=== PATIENT | male | born 1985 | race Caucasian/White ===

== ENCOUNTER → 2019-09-07 11:16 | Outpatient (BNVA) | payer SELFPAY | PROVIDERS: Family Provider Internal Medicine; PCP Registered Nurse; Visit Provider Nurse Practitioner Family | DX: R63.5 Abnormal weight gain (principal); E05.90 Thyrotoxicosis, unspecified without thyrotoxic crisis or storm | CPT/HCPCS: 81000; 84443 ==

== ENCOUNTER → 2019-12-13 08:22 | Outpatient (BNVA) | payer OTHER, SELFPAY | PROVIDERS: Family Provider Internal Medicine; PCP Nurse Practitioner Family; Referring Provider Nurse Practitioner Family; Visit Provider Urology | DX: R32 Unspecified urinary incontinence (principal) | CPT/HCPCS: 81003 ==

== ENCOUNTER → 2020-03-20 11:00 | Outpatient (BNVA) | payer OTHER, SELFPAY | PROVIDERS: Family Provider Internal Medicine; PCP Nurse Practitioner Family; Visit Provider Urology | DX: N48.0 Leukoplakia of penis (principal) | CPT/HCPCS: 81003 ==

== ENCOUNTER → 2020-12-03 12:14 | Outpatient (BNVA) | payer OTHER, SELFPAY | PROVIDERS: Family Provider Internal Medicine; PCP Nurse Practitioner Family; Visit Provider Nurse Practitioner Family | DX: R19.7 Diarrhea, unspecified (principal) | CPT/HCPCS: 87506 ==

== ENCOUNTER 2021-04-07 09:31 | Outpatient (CLI) | payer OTHER, SELFPAY ==
[2021-04-07 10:27] LABS: Alanine Aminotransferase 51 U/L (0-41); Albumin Level 4.1 g/dL (3.5-5.2); Alkaline Phosphatase 79 IU/L (40-130); Aspartate Amino Transferase 46 U/L (0-40); Blood Urea Nitrogen 16 mg/dL (6-20); Calcium 9.5 mg/dL (8.5-10.5); Carbon Dioxide 22 mmol/L (22-29); Chloride 106 mmol/L (98-107); Chol HDL Ratio 4.46 mg/dL (1.0-5.00); Cholesterol 174 mg/dL (0-200); Glomerular Filtration Rate 128.3 mL/min (90-130); Glucose 119 mg/dL (65-115); HDL Cholesterol 39 mg/dL (60-100); LDL Cholesterol Calculated 103 mg/dL (50-129); LDL HDL Ratio 2.64 RATIO (0.00-3.22); Osmolality Calculated 292 mOsm/kg (285-295); Sodium 140 mmol/L (136-145); Thyroid Stimulating Hormone 2.67 uIU/mL (0.27-4.20); Total Bilirubin 0.4 mg/dL (0.15-1.2); Total Protein 8.1 g/dL (6.6-8.7); Triglycerides 158 mg/dL (0-150)
[2021-04-07 10:28] LABS: Anion Gap 16.4 (5-19); Potassium 4.4 mmol/L (3.5-5.1)
== END 2021-04-07 09:32 | disposition home or self-care (01) ==
PROVIDERS: PCP Nurse Practitioner Family; Visit Provider Nurse Practitioner Family
DX: I10 Essential (primary) hypertension (principal); E78.5 Hyperlipidemia, unspecified; E66.9 Obesity, unspecified
CPT/HCPCS: 36415; 80053; 80061; 84443

== ENCOUNTER → 2021-04-29 10:57 | Outpatient (BNVA) | payer OTHER, SELFPAY | PROVIDERS: PCP Nurse Practitioner Family; Visit Provider Nurse Practitioner | DX: R05.9 Cough, unspecified (principal) | CPT/HCPCS: 87400 ==

== ENCOUNTER 2021-07-21 18:36 | Emergency (ER) | payer OTHER, SELFPAY ==
[2021-07-21 18:52] VITALS: BP 141/95; PULSE 106; RESP 18; TEMP 36.6; O2SAT 96; BMI 69.7
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
[2021-07-21] MEDS: acetaminophen 500 mg Tablet 1000 MG PO (20:25)
[2021-07-21] MEDS: ibuprofen 200 mg Tablet 400 MG PO (20:25)
== END 2021-07-21 22:47 | disposition home or self-care (01) ==
PROVIDERS: Emergency Provider Nurse Practitioner Family; PCP Nurse Practitioner Family
DX: S80.812A Abrasion, left lower leg, initial encounter (principal); S30.811A Abrasion of abdominal wall, initial encounter; S70.312A Abrasion, left thigh, initial encounter; V68.5XXA Driver of heavy transport vehicle injured in noncollision transport accident in traffic accident, initial encounter
CPT/HCPCS: 99283

== ENCOUNTER → 2021-12-02 10:00 | Outpatient (BNVA) | payer OTHER, SELFPAY | PROVIDERS: PCP Nurse Practitioner Family; Visit Provider Urology | DX: N48.0 Leukoplakia of penis (principal); N47.1 Phimosis | CPT/HCPCS: 81003 ==

== ENCOUNTER → 2022-02-03 09:38 | Outpatient (BNVA) | payer OTHER, SELFPAY | PROVIDERS: PCP Nurse Practitioner Family; Visit Provider Nurse Practitioner Family | DX: Z79.899 Other long term (current) drug therapy (principal); E66.01 Morbid (severe) obesity due to excess calories; Z68.45 Body mass index [BMI] 70 or greater, adult | CPT/HCPCS: 80076 ==